=== PATIENT | female | born 1990 | race Caucasian/White ===

== ENCOUNTER 2016-07-20 00:46 | Emergency (ER) | payer MEDICAID ==
[~2016-07-20] VITALS: Ht 160 cm; Wt 65.8 kg
[~2016-07-20 00:46] MED LIST: ALBU17AE23 IH; BREA1EAC5 MC; CLIN-81 PO; DCS100C PO; DOXY100T2 PO; HYDR-3583 PO; HYDR50TA76 PO; IBP600T1 PO; IBP800T PO; MEDR150D8 IM; METO-270 PO; METR500T PO; NAPR500T PO; NITR-65 PO; ONDA8TAB9 PO; PRD20T PO; PREN1TAB39 PO; PREN1TAB71 PO; QUET200T PO; RNT150T PO; SULF1TAB38 PO; TRM50T PO
--- OUTSIDE RECORDS SUMMARY | 2016-07-20 00:52 | XMS REPORT | Continuity of Care Document ---
Author Author [facility] Organization [facility] Address Unknown Phone Unavailable Care Team Providers Care Hydraulic Barker Operator Name Role Phone Lilibeth Ruvalcaba PCP [phone] Source Comments Some departments are not documenting in the electronic medical record. If you do not see the information that you expected, contact Release of Information in the Health Information Management department at [phone] for further assistance in locating additional records.[facility] Active Allergies and Adverse Reactions Not on File Current Medications Not on file Active Problems Not on file Social History Tobacco Use Types Packs/Day Years Used Date Never Assessed Plan of Care Health Maintenance Due Date Last Done Comments Physical (Comprehensive) 1996 Exam Pertussis Vaccine 2000 Tetanus Vaccine 2006 Influenza Vaccine 01/03/2015 Results from Last 3 Months Not on file
[2016-07-20] MEDS ORDERED: CLINDAMYCIN 300 MG/2ML (CLEOCIN) VIAL ONE (01:15)
[2016-07-20] MEDS ORDERED: CLINDAMYCIN 600 MG/4ML (CLEOCIN) VIAL IM ONE (01:15)
[2016-07-20] MEDS ORDERED: methylPREDNISolone 125 MG (Solu-MEDROL) VIAL IM ONE (01:15)
--- NOTE | 2016-07-20 01:21 | ED Upper Extremity ---
General Chief Complaint: Upper Extremity Stated Complaint: RT ARM PAIN,FEELS HOT Nursing Triage Note: PT C/O REDNESS, WARMTH AND SWELLING TO R ELBOW. SHE DENIES ANY INJURY. Nursing Sepsis Screen: No Definite Risk Source: patient History of Present Illness Time seen by provider: 01:04 Initial Comments PT STATES SHE HAS 3 "LITTLE KNOTTED BUMPS--LIKE BUG BITES" ON HER RIGHT ELBOW-- STATES SHE NOTICED THEM LAST NIGHT STATES THEY ONLY ITCH IF SHE TOUCHES THEM, OTHERWISE THEY ARE PAINFUL AND CAUSE HER WHOLE ARM TO HURT STATES SHE FEELS "HEAT" IN THEM STATES SHE DID NOT SEE OR FEEL ANYTHING BITE HER NO PARESTHESIAS OR MOTOR DEFICITS PCP: [facility] Allergies and Home Medications Allergies Coded Allergies: Penicillins (Verified Allergy, Unknown, 06/22/09) codeine (Verified Allergy, Unknown, seizures, 05/18/15) latex (Verified Allergy, Unknown, 09/17/13) Home Medications Ibuprofen 800 Mg Tablet #60 1 TAB PO Q6H PRN PRN PAIN Prescribed by: GUILLERMO VALLES on 09/26/13 1036 Medroxyprogesterone Acetate 150 Mg/1 Ml Syringe 150 MG IM (Reported) Metoprolol Succinate 25 Mg Tab.er.24h #30 1 TAB PO DAILY (Reported) Naproxen 500 Mg Tablet #20 500 MG PO BID PRN PRN PAIN Prescribed by: BETITO TRIPP on 05/18/15 2156 Constitutional: no symptoms reported Respiratory: no symptoms reported Cardiovascular: no symptoms reported : No Control/STD Prophylaxis: Depo Provera (LAST SHOT 07/05/16--NO PERIODS AT ALL SINCE BEING ON DEPO-PROVERA) Musculoskeletal: see HPI Skin: see HPI Psychiatric/Neurological: No Symptoms Reported Past Ntwrqwq-Teambz-Orxdrm Hx Patient Social History Alcohol Use: Denies Use Recreational Drug Use: No Smoking Status: Current Everyday Smoker (1) Type Used: Cigarettes 2nd Hand Smoke Exposure: No Recent Foreign Travel: No Contact w/Someone Who Travel: No Recent Infectious Disease Expo: No Recent Hopitalizations: No Immunizations Up To Date Tetanus Booster (TDap): Less than 5yrs Date of Influenza Vaccine: Mar 05, 2011 Seasonal Allergies Seasonal Allergies: No Surgeries HX Surgeries: Yes Surgeries: Section Respiratory Hx Respiratory Disorders: Yes Respiratory Disorders: Asthma Cardiovascular Hx Cardiac Disorders: No Neurological Hx Neurological Disorders: No Reproductive System Hx Reproductive Disorders: No Genitourinary Hx Genitourinary Disorders: No Gastrointestinal Hx Gastrointestinal Disorders: Yes Gastrointestinal Disorders: Gastroesophageal Reflux, Ulcer Musculoskeletal Hx Musculoskeletal Disorders: No Endocrine Hx Endocrine Disorders: No HEENT HX ENT Disorders: No Cancer Hx Cancer: No Psychosocial Hx Psychiatric Problems: Yes ("13 PERSONALITIES" PER PT. EXTENSIVE PSYCH ISSUES --PT SELF DC'D ALL PSYCH MEDICATIONS 6 MONTHS AGO, PER PT ON 07/20/16) Behavioral Health Disorders: Anxiety, Bipolar, Personality Disorder Integumentary HX Skin/Integumentary Disorder: No Blood Transfusions Hx Blood Disorders: No Adverse Reaction to a Blood Tr: No Family Medical History Family Medial History: Alcoholism 19 FATHER Cancer G8 SISTER Family history: Asthma 19 FATHER 19 MOTHER G8 BROTHER G8 SISTER Seizure disorder G8 BROTHER No Family History of: Abdominal aortic aneurysm Cancer of colon Dementia Family history: Alzheimer's disease Family history: Arthritis Family history: Breast disease Family history: Cardiovascular disease Family history: Diabetes mellitus Family history: Gastrointestinal disease Family history: Hypertension Family history: Thyroid disorder Hereditary disease History of - respiratory disease Kidney disease Myocardial infarction Parkinson's disease Prostate cancer Psychotic disorder Stroke Physical Exam Vital Signs Vital Sign - Last 12Hours 07/20/16 01:01 Temp 98.5 Pulse 89 Resp 16 B/P 135/85 Pulse Ox 96 O2 Delivery Room Air Capillary Refill : Less Than 3 Seconds General Appearance: WD/WN no apparent distress obese other (REEKS OF CIGARETTES) Cardiovascular: regular rate, rhythm Respiratory: normal breath sounds Back: normal inspection Shoulder: normal inspection Elbow/Forearm: Right (RIGHT ELBOW WITH 3 SMALL SUPERFICIAL NODULES-- APPROXIMATELY 5 MM IN DIAMETER. ALL SLIGHTLY ERYTHEMATOUS AND ARE IN A LINEAR DISTRIBUTION AND HAVE THE APPEARANCE OF INSECT BITES. NO SURROUNDING SWELLING/ INDURAITON, WARMTH OR ERYTHEMA. NO DRAINAGE. NO STREAKS. NO AXILLARY ADENOPATHY. FULL ROM. MOTOR/SENSORY/VASCULAR INTACT) Wrist: Yes normal inspection, Yes abrasions Neurologic/Tendon: normal sensation normal motor functions normal tendon functions Neurologic/Psychiatric: certified dialysis technician II-XII nml as tested no motor/sensory deficits alert normal mood/affect oriented x 3 Skin: normal color warm/dry tattoos/piercings (MULTIPLE TATTOOS AND PIERCINGS ) other ( ABOVE) Progress/Results/Core Measures Results/Orders My Orders Orders-JORI JONES DO Methylprednisolone Sod Succ (Solu-Medrol (07/20/16 01:15) Clindamycin Injection (Cleocin Injection (07/20/16 01:15) Vital Signs/I&O Vital Sign - Last 12Hours 07/20/16 01:01 Temp 98.5 Pulse 89 Resp 16 B/P 135/85 Pulse Ox 96 O2 Delivery Room Air Blood Pressure Mean: 102 Departure Impression Impression: Primary Impression: NON-SPECIFIC SKIN ERUPTION RIGHT ELBOW Disposition: HOME, SELF-CARE Condition: Stable Departure-Patient Inst. Referrals: [facility] (PCP/Family) Primary Care Physician Patient Instructions: Skin Rash (DC) Add. Discharge Instructions: TYLENOL AND MOTRIN NEEDED FOR PAIN HYDROCORTISONE CREAM TO AREA 3-4 TIMES A DAY ICE TO AREA AT 20 MINUTE INTERVALS FOLLOW UP WITH YOUR DR ON FRIDAY IF NO BETTER All discharge instructions reviewed with patient and/or family. Voiced understanding. Scripts Prednisone 10 Mg Tab40 Mg PO DAILY #12 TAB Prov:JORI JONES DO 07/20/16 Sulfamethoxazole/Trimethoprim (Bactrim Ds Tablet)1 Each Tablet1 Each PO BID #20 TAB Prov:JORI JONES DO 07/20/16 Images Extremities-Upper 1 - AREA OF 3 SMALL SUPERFICAL "BUMPS" JORI JONES DO Jul 20, 2016 01:21
[2016-07-20] MEDS ORDERED: PRD10T PO (01:30)
[2016-07-20] MEDS ORDERED: SULF1TAB35 PO (01:30)
[2016-07-20 01:35] VITALS: BP 135/85
== END 2016-07-20 01:35 | disposition home or self-care (01) ==
LOC: EDUNIT# 00:46 → ER 00:50
DX: R21 Rash and other nonspecific skin eruption (principal); F17.210 Nicotine dependence, cigarettes, uncomplicated
CPT/HCPCS: 96372; 99282

== ENCOUNTER 2016-07-28 19:12 | Emergency (ER) | payer MEDICAID ==
[~2016-07-28] VITALS: Ht 160 cm; Wt 74.8 kg
[~2016-07-28 19:12] MED LIST changes: +PRD10T PO; +SULF1TAB35 PO
[2016-07-28] MEDS ORDERED: KETOROLAC 60 MG/2 ML VIAL IM ONE (19:15)
--- NOTE | 2016-07-28 19:18 | ED Lower Extremity ---
General Chief Complaint: Lower Extremity Stated Complaint: KNEE PAIN Source: patient, EMS Exam Limitations: no limitations History of Present Illness Time seen by provider: 19:16 Initial Comments To ER with reports of a left knee injury. This began just prior to arrival when she was playing in the grass with some children playing ball. She states the grass was wet and she twisted her knee which then caused her to fall. She states that she hurt her knee pop "8 different times" on the way to the ground. Since the event she's been unable to bear weight on the leg. She arrives per EMS and reports no sensation in the left foot however she is able to dorsiflex and plantar flex her foot and toes and has a strong 2+ dorsalis pedis pulses equal to the right side. Onset: just prior to arrival Severity: moderate Pain/Injury Location: left knee Method of Injury: fell, twisted Modifying Factors: Worse With Movement Allergies and Home Medications Allergies Coded Allergies: Penicillins (Verified Allergy, Unknown, 06/22/09) codeine (Verified Allergy, Unknown, seizures, 05/18/15) latex (Verified Allergy, Unknown, 09/17/13) Home Medications Ibuprofen 800 Mg Tablet, 1 TAB PO Q6H PRN for PAIN, #60 Prescribed by: GUILLERMO VALLES on 09/26/13 1036 Medroxyprogesterone Acetate 150 Mg/1 Ml Syringe, 150 MG IM, (Reported) Metoprolol Succinate 25 Mg Tab.er.24h, 1 TAB PO DAILY, #30 (Reported) Naproxen 500 Mg Tablet, 500 MG PO BID PRN for PAIN, #20 Ref 0 Prescribed by: BETITO TRIPP on 05/18/15 2156 Prednisone 10 Mg Tab, 40 MG PO DAILY, #12 Prescribed by: JORI JONES on 07/20/16 0130 Sulfamethoxazole/Trimethoprim 1 Each Tablet, 1 EACH PO BID, #20 Prescribed by: JORI JONES on 07/20/16 013 Constitutional: see HPI EENTM: see HPI Respiratory: no symptoms reported Cardiovascular: no symptoms reported Genitourinary: no symptoms reported Musculoskeletal: see HPI, joint pain Skin: no symptoms reported Psychiatric/Neurological: No Symptoms Reported Past Ccollpe-Kviqqq-Kqkfbf Hx Patient Social History Type Used: Cigarettes 2nd Hand Smoke Exposure: No Recent Hopitalizations: No Immunizations Up To Date Tetanus Booster (TDap): Less than 5yrs Date of Influenza Vaccine: Mar 05, 2011 Seasonal Allergies Seasonal Allergies: No Surgeries HX Surgeries: Yes Surgeries: Section Respiratory Hx Respiratory Disorders: Yes Respiratory Disorders: Asthma Cardiovascular Hx Cardiac Disorders: No Neurological Hx Neurological Disorders: No Reproductive System Hx Reproductive Disorders: No Genitourinary Hx Genitourinary Disorders: No Gastrointestinal Hx Gastrointestinal Disorders: Yes Gastrointestinal Disorders: Gastroesophageal Reflux, Ulcer Musculoskeletal Hx Musculoskeletal Disorders: No Endocrine Hx Endocrine Disorders: No HEENT HX ENT Disorders: No Cancer Hx Cancer: No Psychosocial Hx Psychiatric Problems: Yes Behavioral Health Disorders: Anxiety, Bipolar, Personality Disorder Integumentary HX Skin/Integumentary Disorder: No Blood Transfusions Hx Blood Disorders: No Adverse Reaction to a Blood Tr: No Family Medical History Family Medial History: Alcoholism 19 FATHER Cancer G8 SISTER Family history: Asthma 19 FATHER 19 MOTHER G8 BROTHER G8 SISTER Seizure disorder G8 BROTHER No Family History of: Abdominal aortic aneurysm Cancer of colon Dementia Family history: Alzheimer's disease Family history: Arthritis Family history: Breast disease Family history: Cardiovascular disease Family history: Diabetes mellitus Family history: Gastrointestinal disease Family history: Hypertension Family history: Thyroid disorder Hereditary disease History of - respiratory disease Kidney disease Myocardial infarction Parkinson's disease Prostate cancer Psychotic disorder Stroke Physical Exam Vital Signs Vital Sign - Last 12Hours 07/28/16 19:13 Temp 98.2 Pulse 100 Resp 18 B/P (MAP) 134/102 Pulse Ox 97 O2 Delivery Room Air Capillary Refill : General Appearance: WD/WN, no apparent distress HEENT: PERRL/EOMI, normal ENT inspection Neck: non-tender, full range of motion Respiratory: no respiratory distress, no accessory muscle use Hips: bilateral hip non-tender, bilateral hip normal inspection, bilateral hip normal range of motion Legs: bilateral leg non-tender, bilateral leg normal inspection, bilateral leg normal range of motion Knees: left knee pain, left knee soft tissue tenderness, left knee other ( there is no obvious deformity to the knee. There is no obvious effusion. As mentioned she reports hypoesthesia of the left foot but maintains motor function with the ability to plantar and dorsiflex the toes and the foot. Capillary refill of the toes is less than 2 seconds in the dorsalis pedis pulse of the left foot is 2+, equal to the right.) Neurologic/Psychiatric: alert, normal mood/affect, oriented x 3 Comments When touched with a broken off wooden tongue blade, she denies feeling anything from the knee inferiorly circumferentially around the leg. However to the plantar surface of the foot she maintains both sharp and dull sensation. As mentioned she is able to dorsiflex the toes and the foot at the ankle. Progress/Results/Core Measures Results/Orders My Orders Orders - ALEXI SIMMS APRN Knee, Left, 3 Views (07/28/16 19:15) Ketorolac Injection (Toradol Injection) (07/28/16 19:15) Medications Given in ED Current Medications Medications Dose Ordered Sig/Kevin Route Start Time Stop Time Status Last Admin Dose Admin Ketorolac Tromethamine 60 mg ONCE ONCE IM 07/28/16 19:15 07/28/16 19:16 DC 07/28/16 19:27 60 MG Vital Signs/I&O Vital Sign - Last 12Hours 07/28/16 19:13 Temp 98.2 Pulse 100 Resp 18 B/P (MAP) 134/102 Pulse Ox 97 O2 Delivery Room Air Diagnostic Imaging Diagonstic Imaging: Xray Comments NAME: MYLES SORIA [facility] REC#: [id number] PT STATUS: REG ER : 1990 PHYSICIAN: ALEXI SIMMS APRN ADMIT DATE: 07/28/16/ER Draft Date of Exam:07/28/16 KNEE, LEFT, 3 VIEWS INDICATION: Knee pain after fall. TECHNIQUE: Three views of the left knee. COMPARISON: None available. FINDINGS: There is no acute fracture or traumatic malalignment. No significant knee joint effusion. Normal osseous mineralization. Joint spaces are well maintained. IMPRESSION: No acute fracture or traumatic malalignment involving the left knee. Dictated on workstation # [id number] Dict: 07/28/161929 Trans: 07/28/161931 [facility] [id number] Interpreted by: LYNN MOCTEZUMA MD Electronically signed by: Departure Impression Impression: Primary Impression: Sprain of knee Disposition: 01 HOME, SELF-CARE Condition: Stable Departure-Patient Inst. Decision time for Depature: 19:37 Referrals: [facility] (PCP) Primary Care Physician SOFIA BAUTISTA MD,LAN GIBSON,LEA BARFIELD,ART KEMP,LON SWAIN,ZOFIA Selby MD Patient Instructions: Knee Sprain (DC) Add. Discharge Instructions: 1. Call one of the orthopedic surgeons tomorrow to make an appointment to be seen in follow-up. Alternatively you may see your family doctor tomorrow and discuss with them whether or not an MRI of the knee would be of value. It away , you should be reevaluated later this week by someone to ensure that you are improving 2. Tylenol and Motrin for pain 3. Wear the knee immobilizer anytime that you are up and about until you are released from wearing this by your primary care provider or orthopedics 4. Use crutches as needed when walking for any pain All discharge instructions reviewed with patient and/or family. Voiced understanding. ALEXI SIMMS APRN Jul 28, 2016 19:18
--- NOTE | 2016-07-28 19:33 | Diagnostic Imaging Report ---
INDICATION: Knee pain after fall. TECHNIQUE: Three views of the left knee. COMPARISON: None available. FINDINGS: There is no acute fracture or traumatic malalignment. No significant knee joint effusion. Normal osseous mineralization. Joint spaces are well maintained. IMPRESSION: No acute fracture or traumatic malalignment involving the left knee. Dictated by: Dictated on workstation # [id number]
[2016-07-28] MEDS ORDERED: HYDROcodone/APAP 5 MG/325 MG (LORTAB) TAB PO ONE (19:45)
[2016-07-28 19:51] VITALS: BP 121/74
--- OUTSIDE RECORDS SUMMARY | 2016-08-13 13:44 | XMS REPORT | Continuity of Care Document ---
Author Author [facility] Organization [facility] Address Unknown Phone Unavailable Care Team Providers Care Dietary Manager Name Role Phone Lilibeth Ruvalcaba PCP [phone] Source Comments Some departments are not documenting in the electronic medical record. If you do not see the information that you expected, contact Release of Information in the Health Information Management department at [phone] for further assistance in locating additional records.[facility] Active Allergies and Adverse Reactions Not on File Current Medications Not on file Active Problems Not on file Social History Tobacco Use Types Packs/Day Years Used Date Never Assessed Plan of Care Health Maintenance Due Date Last Done Comments Physical (Comprehensive) 1996 Exam Pertussis Vaccine 2000 Tetanus Vaccine 2006 Influenza Vaccine 01/03/2017 Results from Last 3 Months Not on file
--- OUTSIDE RECORDS SUMMARY | 2016-08-13 13:44 | XMS REPORT ---
Author Author EBONI SANDY [facility] eClinical[employer] Address Unknown Phone Unavailable Care Team Providers Care Railroad Baggage Porter Name Role Phone EBONI SANDY Unavailable Allergies No Known Allergies Problems Problem Type Condition ICD-9 Code Onset Dates Condition Status Problem Screening for diabetes mellitus V77.1 Active Problem examination or test, positive result V72.42 Active Problem DTAP TEST V06.1 Active Problem Disruption of wound, 674.14 Active Problem Pain in thoracic spine 724.1 Active Problem Cough 786.2 Active Problem Unspecified contraceptive management V25.9 Active Assessment Dental examination V72.2 Active Problem Encounter for change or removal of surgical wound dressing V58.31 Active Problem Need for prophylactic vaccination and inoculation, Influenza V04.81 Active Problem Acute upper respiratory infections of unspecified site 465.9 Active Problem Chest pain, other 786.59 Active Problem Screening examination for venereal disease V74.5 Active Problem Tobacco use disorder complicating , childbirth, or the puerperium, unspecified as to episode of care or not applicable 649.00 Active Problem Unspecified backache 724.5 Active Problem Unspecified infective otitis externa 380.10 Active Problem Previous delivery, unspecified as to episode of care or not applicable 654.20 Active Problem Supervision of other high-risk V23.89 Active Problem Screening for malignant neoplasm of the cervix V76.2 Active Problem Acute serous otitis media 381.01 Active Problem Abdominal pain, unspecified site 789.00 Active Problem Acute bronchitis 466.0 Active Problem Screening for iron deficiency anemia V78.0 Active Medications No Known Medications Procedures Procedure Coding System Code Date INTRAORL-PERIAPICAL EA ADD FILM CPT-4 D0230 Dec 12, 2014 INTRAORL-PERIAPICAL EA ADD FILM CPT-4 D0230 Dec 12, 2014 INTRAORL-PERIAPICAL 1 FILM 60965 CPT-4 D0220 Dec 12, 2014 INTRAORL-PERIAPICAL EA ADD FILM CPT-4 D0230 Dec 12, 2014 INTRAORL-PERIAPICAL EA ADD FILM CPT-4 D0230 Dec 12, 2014 Periodontal scaling & root CPT-4 D4341 Dec 12, 2014 BITEWINGS - FOUR FILMS CPT-4 D0274 Dec 12, 2014 Results No Known Results Summary Purpose eClinicalWorks Submission
--- OUTSIDE RECORDS SUMMARY | 2016-08-13 13:45 | XMS REPORT ---
Author Author CIERRA MOR[facility] [employer] Address Unknown Phone Unavailable Care Team Providers Care Coke Inspector Name Role Phone CIERRA MORENO Unavailable Allergies, Adverse Reactions, Alerts Substance Reaction Event Type Penicillin V Potassium hives Drug Allergy Problems Problem Type Condition Code Onset Dates Condition Status Problem Screening for iron deficiency anemia V78.0 Active Assessment Encounter for counseling regarding contraception Z30.9 Active Problem Screening for diabetes mellitus V77.1 Active Assessment Encounter for Depo-Provera contraception Z30.42 Active Problem DTAP TEST V06.1 Active Problem Acute upper respiratory infections of unspecified site 465.9 Active Problem examination or test, positive result V72.42 Active Problem Encounter for change or removal of surgical wound dressing V58.31 Active Problem Disruption of wound, 674.14 Active Problem Unspecified infective otitis externa 380.10 Active Problem Pain in thoracic spine 724.1 Active Problem Reactive airway disease 493.90 Active Problem Unspecified contraceptive management V25.9 Active Problem Screening examination for venereal disease V74.5 Active Problem Need for prophylactic vaccination and inoculation, Influenza V04.81 Active Problem Cough 786.2 Active Problem Chest pain, other 786.59 Active Problem Unspecified backache 724.5 Active Problem Acute serous otitis media 381.01 Active Problem Previous delivery, unspecified as to episode of care or not applicable 654.20 Active Problem Tobacco use disorder complicating , childbirth, or the puerperium, unspecified as to episode of care or not applicable 649.00 Active Problem Screening for malignant neoplasm of the cervix V76.2 Active Problem Abdominal pain, unspecified site 789.00 Active Problem Acute bronchitis 466.0 Active Problem Supervision of other high-risk V23.89 Active Medications Medication Code System Code Instructions Start Date End Date Status Dosage Brintellix [facility] [address]-20 20 MG Orally Once a day Apr 25, 2014 take 2 tablets Lamictal [facility] [address]-40 200 MG Orally Once a day Apr 25, 2014 2 tablets Depo-Provera [facility] [address]-87 150 MG/ML Intramuscular every 3 months Feb 27, 2016 as directed Alprazolam [facility] [address]-68 1 MG Orally Twice a day Apr 25, 2014 take 1 tablet Procedures Procedure Coding System Code Date Office Visit, Est Pt., Level 3 CPT-4 28246 Feb 27, 2016 DEPO PROVERA (150 MG/ML) CPT-4 J1050 Feb 27, 2016 URINE TEST CPT-4 74855 Feb 27, 2016 THER/PROPH/DIAG INJ, SC/IM CPT-4 24228 Feb 27, 2016 Vital Signs Date/Time: Feb 27, 2016 Cardiac Monitoring Heart Rate 91 bpm Weight 182.2 lbs Height 59.75 in BMI 35.88 Index Blood Pressure Diastolic 70 mmHg Blood Pressure Systolic 118 mmHg Results Name Result Date Reference Range Unit Abnormality Flag TEST, URINE (IN HOUSE) ----RESULTS Neg [id number] ----Lot # [id number] ----Control + [id number] ----Exp date 20160227 Summary Purpose eClinicalWorks Submission
--- OUTSIDE RECORDS SUMMARY | 2016-08-13 13:45 | XMS REPORT ---
Author Author SHEREE HERRERA [facility] eClinicalWorks Address Unknown Phone Unavailable Care Team Providers Care Medical Delivery Driver Name Role Phone SHEREE HERRERA CP Unavailable Allergies, Adverse Reactions, Alerts Substance Reaction Event Type Penicillin V Potassium hives Drug Allergy Problems Problem Type Condition Code Onset Dates Condition Status Assessment High risk medication use Z79.899 Active Assessment Low back pain without sciatica, unspecified back pain laterality M54.5 Active Assessment Contraceptive management Z30.9 Active Problem Screening for iron deficiency anemia V78.0 Active Assessment Tachycardia R00.0 Active Problem Screening for diabetes mellitus V77.1 Active Assessment Rhinosinusitis J32.9 Active Problem DTAP TEST V06.1 Active Problem [...] Instructions Start Date End Date Status Dosage Metoprolol Succinate ER [facility] [address]-32 25 MG Orally Once a day Apr 20, 2015 1 tablet Doxycycline Hyclate [facility] [address]-23 100 MG Orally every 12 hrs Apr 20, 2015 Apr 25, 2015 1 capsule Alprazolam [facility] [address]-78 1 MG Orally Twice a day Apr 25, 2014 take 1 tablet Doxepin HCl [facility] [address]-21 10 MG Orally Once a day 2 capsules at bedtime ProAir HFA [facility] [address]-38 108 (90 Base) MCG/ACT Inhalation every 4 hrs Dec 15, 2014 2 puffs as needed Omeprazole [facility] [address]-41 20 mg Mar 09, 2014 take 1 capsule ( 20 mg) by oral route once daily before a meal Brintellix [facility] [address]-80 20 MG Orally Once a day Apr 25, 2014 take 2 tablets Seroquel [facility] [address]-83 400 MG Orally Once a day 2 tablets at bedtime Lamictal [facility] [address]-83 200 MG Orally Once a day Apr 25, 2014 2 tablets Qvar [facility] [address]-93 40 MCG/ACT Inhalation Twice a day Dec 15, 2014 1 puff Fanapt [facility] [address]-93 10 MG Orally Once a day Apr 25, 2014 take 2 tablets Procedures Procedure Coding System Code Date THER/PROPH/DIAG INJ, SC/IM CPT-4 75995 Apr 20, 2015 Office Visit, Est Pt., Level 3 CPT-4 21826 Apr 20, 2015 DEPO PROVERA (150 MG/ML) CPT-4 J1050 Apr 20, 2015 DRUG SCREEN NON TLC DEVICES CPT-4 76907 Apr 20, 2015 URINE TEST CPT-4 31768 Apr 20, 2015 Vital Signs Date/Time: Apr 20, 2015 Temperature 99.6 F Weight 190.4 lbs Height 59.75 in BMI 37.49 Index Blood Pressure Diastolic 78 mmHg Blood Pressure Systolic 126 mmHg Cardiac Monitoring Heart Rate 136 bpm Results Name Result Date Reference Range Unit Abnormality Flag TEST, URINE (IN HOUSE) ----RESULTS Neg [id number] ----Control + [id number] URINE DRUG SCREEN (IN HOUSE) ----THC neg [id number] ----MTD neg [id number] ----BENZO neg [id number] ----OPIATE neg [id number] ----BAR neg [id number] ----OXY neg [id number] ----PCP neg [id number] ----MDMA neg [id number] ----COCAINE neg [id number] ----AMPH neg [id number] ----Exp date [id number] ----MAMP neg [id number] ----TCA neg [id number] ----Control + [id number] ----Lot # [id number] Summary Purpose eClinicalWorks Submission
--- OUTSIDE RECORDS SUMMARY | 2016-08-13 13:45 | XMS REPORT ---
Author Author SHEREE HERRERA [facility] eClinicalWorks Address Unknown Phone Unavailable Care Team Providers Care Environmental Protection Forester Name Role Phone SHEREE HERRERA CP Unavailable Allergies No Known Allergies Problems Problem Type Condition Code Onset Dates Condition Status Problem DTAP TEST V06.1 Active Problem Acute upper respiratory infections of unspecified site 465.9 Active Problem examination or test, positive result V72.42 Active Problem Encounter for change or removal of surgical wound dressing V58.31 Active Problem Unspecified infective otitis externa 380.10 Active Problem Disruption of wound, 674.14 Active Problem Pain in thoracic spine 724.1 Active Problem Unspecified contraceptive management V25.9 Active Problem Reactive airway disease 493.90 Active Problem Screening examination for venereal disease [...] Screening for iron deficiency anemia V78.0 Active Problem Supervision of other high-risk V23.89 Active Problem Screening for diabetes mellitus V77.1 Active Medications No Known Medications Results No Known Results Summary Purpose eClinicalWorks Submission
--- OUTSIDE RECORDS SUMMARY | 2016-08-13 13:45 | XMS REPORT ---
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
--- OUTSIDE RECORDS SUMMARY | 2016-08-13 13:47 | XMS REPORT ---
Author Author SHEREE HERRERA [facility] eClinicalWorks Address Unknown Phone Unavailable Care Team Providers Care Supervisor Rough End Name Role Phone SHEREE HERRERA CP Unavailable [...] Start Date End Date Status Dosage Spinosad [facility] [address]-71 0.9 % Externally one time May 03, 2015 as directed Results No Known Results Summary Purpose eClinicalWorks Submission
--- OUTSIDE RECORDS SUMMARY | 2016-08-13 13:47 | XMS REPORT | Continuity of Care Document ---
Author Author [facility] Organization [facility] Address Unknown Phone Unavailable Care Team Providers Care Manager Endoscopy Name Role Phone NO, LOCAL PHYSICIAN PP Unavailable Insurance Providers Payer Name Policy Number Subscriber Name Relationship [facility] [id number] Jamel Soria 01 Self / Same As Patient Advance Directives Directive Response Recorded Date Advance Directives N 10/12/12 1:57pm Health Care Power of Passenger Relations Representative N 09/20/12 11:25pm Organ Donor N 09/20/12 11:25pm Problems No Known Problems or Medical conditions. Family History History Response Recorded Date/Time Hx Family Cancer N 08/24/11 10:16am Social History History Response Recorded Date/Time Alcohol Use Denies Use 10/12/12 1:57pm Recreational Drug Use N 10/12/12 1:57pm Recent Foreign Travel N 10/12/12 1:57pm Recent Infectious Disease Exposure N 02/14 1:57pm Allergies, Adverse Reactions, Alerts Allergen Type Severity Reaction Last Updated Penicillins Allergy Unknown 06/22/09 latex Allergy 10/12/12 Medications Medication Dose Units Route Sig Qty Days Tramadol HCl (Ultram) 50 Mg PO Q4H 14 Trimethoprim/Sulfamethoxazole (Bactrim Ds) 1 Ea PO BID 7 Nitrofurantoin Macrocrystals (Macrobid) 1 Each PO BID 20 Ibuprofen (Motrin) 600 Mg PO Q6H PRN Acetaminophen/Hydrocodone Bitart (Lortab 5 Mg) 1 - 2 Ea PO Q 4 - 6 HR PRN Vits W-Ca,Fe,Fa(<1MG) () 1 Each PO DAILY Immunizations Name Given Type Date of Influenza Vaccine 03/05/11 H Response Recorded Date/Time Status not known Unknown Results No Known Relevant Diagnostic Tests, Laboratory Data and/or Discharge Summary. Procedures Procedure Code Date LOW CERVICAL 74.1 02/09/07 LOW CERVICAL 74.1 06/22/09 LOW CERVICAL 74.1 08/24/11 Encounters Encounter Location Date/Time Departed Emergency Room [facility] 02/14 1:22pm Discharged Inpatient [facility] 8:03am
--- OUTSIDE RECORDS SUMMARY | 2016-08-13 13:47 | XMS REPORT | Continuity of Care Document ---
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 DO, BEULAH K V72.42 EXAMINATION OR TEST POSITIVE RESULT 02/08/2013 [facility] SHEREE E 465.9 ACUTE UPPER RESPIRATORY INFECTIONS OF UNSPECIFIED SITE 02/08/2013 [employer] SHEREE E V72.42 EXAMINATION OR TEST POSITIVE RESULT 02/08/2013 [employer] SHEREE E 465.9 ACUTE UPPER RESPIRATORY INFECTIONS OF UNSPECIFIED SITE 02/08/2013 [employer], SHEREE E V72.42 EXAMINATION OR TEST POSITIVE RESULT 02/08/2013 DOWELL DO, BEULAH K 465.9 ACUTE UPPER RESPIRATORY INFECTIONS OF UNSPECIFIED SITE 02/08/2013 DOWELL DO, BEULAH K V72.42 EXAMINATION OR TEST POSITIVE RESULT 02/08/2013 SHEREE HERRERA APRN E 465.9 ACUTE UPPER RESPIRATORY INFECTIONS OF UNSPECIFIED SITE 02/08/2013 SHEREE HERRERA APRN V72.42 EXAMINATION OR TEST POSITIVE RESULT 02/08/2013 DOWELL DO, BEULAH K 465.9 ACUTE UPPER RESPIRATORY INFECTIONS OF UNSPECIFIED SITE 02/08/2013 DOWELL DO, BEULAH K V72.42 EXAMINATION OR TEST POSITIVE RESULT 02/17/2013 DOWELL DO, BEULAH K 789.00 ABDOMINAL PAIN UNSPECIFIED SITE 02/17/2013 DOWELL DO, BEULAH K 789.00 ABDOMINAL PAIN UNSPECIFIED SITE 02/17/2013 DOWELL DO, BEULAH K 789.00 ABDOMINAL PAIN UNSPECIFIED SITE 02/17/2013 DOWELL DO, BEULAH K 789.00 ABDOMINAL PAIN UNSPECIFIED SITE 02/17/2013 DOWELL DO, BEULAH K 789.00 ABDOMINAL PAIN UNSPECIFIED SITE 02/17/2013 DOWELL DO, BEULAH K 789.00 ABDOMINAL PAIN UNSPECIFIED SITE 02/17/2013 DOWELL DO, BEULAH K 789.00 ABDOMINAL PAIN UNSPECIFIED SITE 02/17/2013 [facility] [employer] SHEREE E 789.00 ABDOMINAL PAIN UNSPECIFIED SITE 02/17/2013 DOWELL DO, BEULAH K 789.00 ABDOMINAL PAIN UNSPECIFIED SITE 02/17/2013 HYACINTHLJUDIT GAMEZ SHEREE E 789.00 ABDOMINAL PAIN UNSPECIFIED SITE 02/17/2013 DOWELL DO, BEULAH K 789.00 ABDOMINAL PAIN UNSPECIFIED SITE 02/17/2013 DOWELL DO, BEULAH K 789.00 ABDOMINAL PAIN UNSPECIFIED SITE 02/17/2013 MARIBEL CALIX DDS 789.00 ABDOMINAL PAIN UNSPECIFIED SITE 02/17/2013 DOWELL DO, BEULAH K 789.00 ABDOMINAL PAIN UNSPECIFIED SITE 02/17/2013 DOWELL DO, BEULAH K 789.00 ABDOMINAL PAIN UNSPECIFIED SITE 02/17/2013 DOWELL DO, BEULAH K 789.00 ABDOMINAL PAIN UNSPECIFIED SITE 02/17/2013 FIFI WILDESJOSE FRANCISCO 789.00 ABDOMINAL PAIN UNSPECIFIED SITE 02/17/2013 [employer], SHEREE E 789.00 ABDOMINAL PAIN UNSPECIFIED SITE 02/17/2013 DOWELL DO, BEULAH K 789.00 ABDOMINAL PAIN UNSPECIFIED SITE 02/17/2013 [facility] [employer], SHEREE E 789.00 ABDOMINAL PAIN UNSPECIFIED SITE 02/17/2013 DOWELL DO, BEULAH K 789.00 ABDOMINAL PAIN UNSPECIFIED SITE 02/17/2013 HYACINTHISIS SPAIN APRNE E 789.00 ABDOMINAL PAIN UNSPECIFIED SITE 02/17/2013 [facility] [employer] [employer], SHEREE E 789.00 ABDOMINAL PAIN UNSPECIFIED SITE 02/17/2013 DOWELL DO, BEULAH K 789.00 ABDOMINAL PAIN UNSPECIFIED SITE 02/17/2013 [facility] SYLVIA GAMEZSIE E 789.00 ABDOMINAL PAIN UNSPECIFIED SITE 02/17/2013 DOWELL DO, BEULAH K 789.00 ABDOMINAL PAIN UNSPECIFIED SITE 04/07/2013 DOWELL DO, BEULAH K V04.81 FLU SHOT 04/07/2013 DOWELL DO, BEULAH K V74.5 STD SCREEN 04/07/2013 DOWELL DO, BEULAH K V04.81 FLU SHOT 04/07/2013 DOWELL DO, BEULAH K V74.5 STD SCREEN 04/07/2013 DOWELL DO, BEULAH K V04.81 FLU SHOT 04/07/2013 DOWELL DO, BEULAH K V74.5 STD SCREEN 04/07/2013 DOWELL DO, BEULAH K V04.81 FLU SHOT 04/07/2013 DOWELL DO, BEULAH K V74.5 STD SCREEN 04/07/2013 DOWELL DO, BEULAH K V04.81 FLU SHOT 04/07/2013 DOWELL DO, BEULAH K V74.5 STD SCREEN 04/07/2013 DOWELL DO, BEULAH K V04.81 FLU SHOT 04/07/2013 DOWELL DO, BEULAH K V74.5 STD SCREEN 04/07/2013 [facility] SHEREE E V04.81 FLU SHOT 04/07/2013 [facility] [employer], SHEREE E V74.5 STD SCREEN 04/07/2013 DOWELL DO, BEULAH K V04.81 FLU SHOT 04/07/2013 DOWELL DO, BEULAH K V74.5 STD SCREEN 04/07/2013 [facility] VERA SHEREE E V04.81 FLU SHOT 04/07/2013 [facility] SHEREE E V74.5 STD SCREEN 04/07/2013 DOWELL DO, BEULAH K V04.81 FLU SHOT 04/07/2013 DOWELL DO, BEULAH K V74.5 STD SCREEN 04/07/2013 DOWELL DO, BEULAH K V04.81 FLU SHOT 04/07/2013 DOWELL DO, BEULAH K V74.5 STD SCREEN 04/07/2013 WHITE DDS, MARIBEL D V04.81 FLU SHOT 04/07/2013 WHITE DDS, AMRIBEL D V74.5 STD SCREEN 04/07/2013 DOWELL DO, BEULAH K V04.81 FLU SHOT 04/07/2013 DOWELL DO, BEULAH K V74.5 STD SCREEN 04/07/2013 DOWELL DO, BEULAH K V04.81 FLU SHOT 04/07/2013 DOWELL DO, BEULAH K V74.5 STD SCREEN 04/07/2013 DOWELL DO, BEULAH K V04.81 FLU SHOT 04/07/2013 DOWELL DO, BEULAH K V74.5 STD SCREEN 04/07/2013 WHITE DDS, JOSE FRANCISCO J V04.81 FLU SHOT 04/07/2013 WHITE DDS, JOSE FRANCISCO J V74.5 STD SCREEN 04/07/2013 [employer], SHEREE E V04.81 FLU SHOT 04/07/2013 [employer], SHEREE E V74.5 STD SCREEN 04/07/2013 DOWELL DO, BEULAH K V04.81 FLU SHOT 04/07/2013 DOWELL DO, BEULAH K V74.5 STD SCREEN 04/07/2013 [employer], SHEREE E V04.81 FLU SHOT 04/07/2013 [employer], SHEREE E V74.5 STD SCREEN 04/07/2013 DOWELL DO, BEULAH K V04.81 FLU SHOT 04/07/2013 DOWELL DO, BEULAH K V74.5 STD SCREEN 04/07/2013 [employer], SHEREE E V04.81 FLU SHOT 04/07/2013 [employer], SHEREE E V74.5 STD SCREEN 04/07/2013 [employer], SHEREE E V04.81 FLU SHOT 04/07/2013 [employer], SHEREE E V74.5 STD SCREEN 04/07/2013 DOWELL DO, BEULAH K V04.81 FLU SHOT 04/07/2013 DOWELL DO, BEULAH K V74.5 STD SCREEN 04/07/2013 [employer], SHEREE E V04.81 FLU SHOT 04/07/2013 SHEREE HERRERA APRN V74.5 STD SCREEN 04/07/2013 DOWELL DO, BEULAH K V04.81 FLU SHOT 04/07/2013 DOWELL DO, BEULAH K V74.5 STD SCREEN 06/16/2013 DOWELL DO, BEULAH K V06.1 TDAP DX 06/16/2013 DOWELL DO, BEULAH K V77.1 DIABETES SCREENING 06/16/2013 DOWELL DO, BEULAH K V78.0 ANEMIA SCREENING 06/16/2013 DOWELL DO, BEULAH K V06.1 TDAP DX 06/16/2013 DOWELL DO, BEULAH K V77.1 DIABETES SCREENING 06/16/2013 DOWELL DO, BEULAH K V78.0 ANEMIA SCREENING 06/16/2013 DOWELL DO, BEULAH K V06.1 TDAP DX 06/16/2013 DOWELL DO, BEULAH K V77.1 DIABETES SCREENING 06/16/2013 DOWELL DO, BEULAH K V78.0 ANEMIA SCREENING 06/16/2013 SHEREE HERRERA APRN E V06.1 TDAP DX 06/16/2013 SHEREE HERRERA APRN E V77.1 DIABETES SCREENING 06/16/2013 [facility] E V78.0 ANEMIA SCREENING 06/16/2013 DOWELL DO, BEULAH K V06.1 TDAP DX 06/16/2013 DOWELL DO, BEULAH K V77.1 DIABETES SCREENING 06/16/2013 DOWELL DO, BEULAH K V78.0 ANEMIA SCREENING 06/16/2013 SHEREE HERRERA APRN E V06.1 TDAP DX 06/16/2013 HYACINTHSHEREE SPAIN APRN E V77.1 DIABETES SCREENING 06/16/2013 [facility] E V78.0 ANEMIA SCREENING 06/16/2013 DOWELL DO, BEULAH K V06.1 TDAP DX 06/16/2013 DOWELL DO, BEULAH K V77.1 DIABETES SCREENING 06/16/2013 DOWELL DO, BEULAH K V78.0 ANEMIA SCREENING 06/16/2013 DOWELL DO, BEULAH K V06.1 TDAP DX 06/16/2013 DOWELL DO, BEULAH K V77.1 DIABETES SCREENING 06/16/2013 DOWELL DO, BEULAH K V78.0 ANEMIA SCREENING 06/16/2013 MARIBEL CALIX DDS V06.1 TDAP DX 06/16/2013 WHITE DDS, MARIBEL D V77.1 DIABETES SCREENING 06/16/2013 WHITE DDS, MARIBEL D V78.0 ANEMIA SCREENING 06/16/2013 DOWELL DO, BEULAH K V06.1 TDAP DX 06/16/2013 DOWELL DO, BEULAH K V77.1 DIABETES SCREENING 06/16/2013 DOWELL DO, BEULAH K V78.0 ANEMIA SCREENING 06/16/2013 DOWELL DO, BEULAH K V06.1 TDAP DX 06/16/2013 DOWELL DO, BEULAH K V77.1 DIABETES SCREENING 06/16/2013 DOWELL DO, BEULAH K V78.0 ANEMIA SCREENING 06/16/2013 DOWELL DO, BEULAH K V06.1 TDAP DX 06/16/2013 DOWELL DO, BEULAH K V77.1 DIABETES SCREENING 06/16/2013 DOWELL DO, BEULAH K V78.0 ANEMIA SCREENING 06/16/2013 WHITE DDS, JOSE FRANCISCO J V06.1 TDAP DX 06/16/2013 WHITE DDS, JOSE FRANCISCO J V77.1 DIABETES SCREENING 06/16/2013 WHITE DDS, JOSE FRANCISCO J V78.0 ANEMIA SCREENING 06/16/2013 ISIS HERRERA APRNE E V06.1 TDAP DX 06/16/2013 SHEREE HERRERA APRN E V77.1 DIABETES SCREENING 06/16/2013 ISIS HERRERA APRNE E V78.0 ANEMIA SCREENING 06/16/2013 DOWELL DO, BEULAH K V06.1 TDAP DX 06/16/2013 DOWELL DO, BEULAH K V77.1 DIABETES SCREENING 06/16/2013 DOWELL DO, BEULAH K V78.0 ANEMIA SCREENING 06/16/2013 SHARON GAMEZ SHEREE E V06.1 TDAP DX 06/16/2013 SYLVIA HERRERA APRNSIE E V77.1 DIABETES SCREENING 06/16/2013 SYLVIA HERRERA APRNSIE E V78.0 ANEMIA SCREENING 06/16/2013 DOWELL DO, BEULAH K V06.1 TDAP DX 06/16/2013 DOWELL DO, BEULAH K V77.1 DIABETES SCREENING 06/16/2013 DOWELL DO, BEULAH K V78.0 ANEMIA SCREENING 06/16/2013 [facility] SHEREE E V06.1 TDAP DX 06/16/2013 [employer], SHEREE E V77.1 DIABETES SCREENING 06/16/2013 [facility] SHEREE E V78.0 ANEMIA SCREENING 06/16/2013 [facility] SHEREE E V06.1 TDAP DX 06/16/2013 [employer], SHEREE E V77.1 DIABETES SCREENING 06/16/2013 [facility] [employer], SHEREE E V78.0 ANEMIA SCREENING 06/16/2013 DOWELL DO, BEULAH K V06.1 TDAP DX 06/16/2013 DOWELL DO, BEULAH K V77.1 DIABETES SCREENING 06/16/2013 DOWELL DO, BEULAH K V78.0 ANEMIA SCREENING 06/16/2013 [employer], SHEREE E V06.1 TDAP DX 06/16/2013 [facility] [employer], SHEREE E V77.1 DIABETES SCREENING 06/16/2013 [facility] [employer], SHEREE E V78.0 ANEMIA SCREENING 06/16/2013 DOWELL DO, BEULAH K V06.1 TDAP DX 06/16/2013 DOWELL DO, BEULAH K V77.1 DIABETES SCREENING 06/16/2013 DOWELL DO, BEULAH K V78.0 ANEMIA SCREENING 08/26/2013 SYLVIA DOWELL DOA K 649.00 TOBACCO USE DISORDER COMPLICATING CHILDBIRTH OR THE PUERPERIUM UNSPECIFIED TO EPISODE OF CARE OR NOT APPLICABLE 08/26/2013 SYLVIA DOWELL DOA K 649.00 TOBACCO USE DISORDER COMPLICATING CHILDBIRTH OR THE PUERPERIUM UNSPECIFIED TO EPISODE OF CARE OR NOT APPLICABLE 08/26/2013 FIFI WILDESMARIBEL 649.00 TOBACCO USE DISORDER COMPLICATING CHILDBIRTH OR THE PUERPERIUM UNSPECIFIED TO EPISODE OF CARE OR NOT APPLICABLE 08/26/2013 BEULAH DOWELL DO K 649.00 TOBACCO USE DISORDER COMPLICATING CHILDBIRTH OR THE PUERPERIUM UNSPECIFIED TO EPISODE OF CARE OR NOT APPLICABLE 08/26/2013 MAGALYS PIMENTEL BEULAH K 649.00 TOBACCO USE DISORDER COMPLICATING CHILDBIRTH OR THE PUERPERIUM UNSPECIFIED TO EPISODE OF CARE OR NOT APPLICABLE 08/26/2013 SYLVIA DOWELL DOA K 649.00 TOBACCO USE DISORDER COMPLICATING CHILDBIRTH OR THE PUERPERIUM UNSPECIFIED TO EPISODE OF CARE OR NOT APPLICABLE 08/26/2013 FIFI DDS, JOSE FRANCISCO Lundberg 649.00 TOBACCO USE DISORDER COMPLICATING CHILDBIRTH OR THE PUERPERIUM UNSPECIFIED TO EPISODE OF CARE OR NOT APPLICABLE 08/26/2013 SHEREE HERRREA APRN 649.00 TOBACCO USE DISORDER COMPLICATING CHILDBIRTH OR THE PUERPERIUM UNSPECIFIED TO EPISODE OF CARE OR NOT APPLICABLE 08/26/2013 BEULAH DOWELL DO 649.00 TOBACCO USE DISORDER COMPLICATING CHILDBIRTH OR THE PUERPERIUM UNSPECIFIED TO EPISODE OF CARE OR NOT APPLICABLE 08/26/2013 SHEREE HERRERA APRN 649.00 TOBACCO USE DISORDER COMPLICATING CHILDBIRTH OR THE PUERPERIUM UNSPECIFIED TO EPISODE OF CARE OR NOT APPLICABLE 08/26/2013 BEULAH DOWELL DO 649.00 TOBACCO USE DISORDER COMPLICATING CHILDBIRTH OR THE PUERPERIUM UNSPECIFIED TO EPISODE OF CARE OR NOT APPLICABLE 08/26/2013 SHEREE HERRERA APRN 649.00 TOBACCO USE DISORDER COMPLICATING CHILDBIRTH OR THE PUERPERIUM UNSPECIFIED TO EPISODE OF CARE OR NOT APPLICABLE 08/26/2013 SHEREE HERRERA APRN 649.00 TOBACCO USE DISORDER COMPLICATING CHILDBIRTH OR THE PUERPERIUM UNSPECIFIED TO EPISODE OF CARE OR NOT APPLICABLE 08/26/2013 BEULAH DOWELL DO 649.00 TOBACCO USE DISORDER COMPLICATING CHILDBIRTH OR THE PUERPERIUM UNSPECIFIED TO EPISODE OF CARE OR NOT APPLICABLE 08/26/2013 SHEREE HERRERA APRN 649.00 TOBACCO USE DISORDER COMPLICATING CHILDBIRTH OR THE PUERPERIUM UNSPECIFIED TO EPISODE OF CARE OR NOT APPLICABLE 08/26/2013 BEULAH DOWELL DO 649.00 TOBACCO USE DISORDER COMPLICATING CHILDBIRTH OR THE PUERPERIUM UNSPECIFIED TO EPISODE OF CARE OR NOT APPLICABLE 09/14/2013 BEULAH DOWELL DO, Ot 648.93 OTH CURR COND-ANTEPARTUM 09/14/2013 BEULAH DOWELL DO Ot 789.00 ABDOMINAL PAIN, UNSPECIFIED SITE 09/26/2013 JULIET IRENE, CURLY Yuan Ot 649.01 TOBACCO USE DISORDER COMP PREG/ CHILDBIRT 09/26/2013 CURLY VILLEDA MD Ot 654.21 PREV DELIVRY W/ OR W/O MENT ANT 09/26/2013 CURLY VILLEDA MD Ot 663.31 CORD ENTANGLE NEC-DELIV 09/26/2013 CURLY VILLEDA MD Ot V27.0 DELIVER-SINGLE LIVEBORN 09/29/2013 MAGALYS PIMENTEL BEULAH K V25.9 UNSPECIFIED CONTRACEPTIVE MANAGEMENT 09/29/2013 MAGALYS PIMENTEL BEULAH K V25.9 UNSPECIFIED CONTRACEPTIVE MANAGEMENT 09/29/2013 JOSE FRANCISCO CALIX DDS V25.9 UNSPECIFIED CONTRACEPTIVE MANAGEMENT 09/29/2013 [facility] [employer], SHEREE E V25.9 UNSPECIFIED CONTRACEPTIVE MANAGEMENT 09/29/2013 DOWELL DO BEULAH K V25.9 UNSPECIFIED CONTRACEPTIVE MANAGEMENT 09/29/2013 [employer], SHEREE E V25.9 UNSPECIFIED CONTRACEPTIVE MANAGEMENT 09/29/2013 DOWELL DO BEULAH K V25.9 UNSPECIFIED CONTRACEPTIVE MANAGEMENT 09/29/2013 [employer], SHEREE E V25.9 UNSPECIFIED CONTRACEPTIVE MANAGEMENT 09/29/2013 [employer], SHEREE E V25.9 UNSPECIFIED CONTRACEPTIVE MANAGEMENT 09/29/2013 DOWELL DO BEULAH K V25.9 UNSPECIFIED CONTRACEPTIVE MANAGEMENT 09/29/2013 [facility] [employer], SHEREE E V25.9 UNSPECIFIED CONTRACEPTIVE MANAGEMENT 09/29/2013 DOWELL DO BEULAH K V25.9 UNSPECIFIED CONTRACEPTIVE MANAGEMENT 10/04/2013 DOWELL DO BEULAH K V58.31 ENCOUNTER FOR CHANGE OR REMOVAL OF SURGICAL WOUND DRESSING 10/04/2013 JOSE FRANCISCO CALIX DDS V58.31 ENCOUNTER FOR CHANGE OR REMOVAL OF SURGICAL WOUND DRESSING 10/04/2013 HELSYLVIA GUZMAN APRNSIE E V58.31 ENCOUNTER FOR CHANGE OR REMOVAL OF SURGICAL WOUND DRESSING 10/04/2013 SYLVIA DOWELL DOA K V58.31 ENCOUNTER FOR CHANGE OR REMOVAL OF SURGICAL WOUND DRESSING 10/04/2013 SYLVIA HERRERA APRNSIE E V58.31 ENCOUNTER FOR CHANGE OR REMOVAL OF SURGICAL WOUND DRESSING 10/04/2013 MAGALYS PIMENTEL BEULAH K V58.31 ENCOUNTER FOR CHANGE OR REMOVAL OF SURGICAL WOUND DRESSING 10/04/2013 SYLVIA HERRERA APRNSIE E V58.31 ENCOUNTER FOR CHANGE OR REMOVAL OF SURGICAL WOUND DRESSING 10/04/2013 [facility] [employer], SHEREE E V58.31 ENCOUNTER FOR CHANGE OR REMOVAL OF SURGICAL WOUND DRESSING 10/04/2013 DOWELL DO, BEULAH K V58.31 ENCOUNTER FOR CHANGE OR REMOVAL OF SURGICAL WOUND DRESSING 10/04/2013 [facility] [employer], SHEREE E V58.31 ENCOUNTER FOR CHANGE OR REMOVAL OF SURGICAL WOUND DRESSING 10/04/2013 DOWELL DO, BEULAH K V58.31 ENCOUNTER FOR CHANGE OR REMOVAL OF SURGICAL WOUND DRESSING 02/03/2014 [facility], SHEREE E 786.2 COUGH 02/03/2014 [facility], SHEREE E 786.59 OTHER CHEST PAIN 02/03/2014 DOWELL DO, BEULAH K 786.2 COUGH 02/03/2014 DOWELL DO, BEULAH K 786.59 OTHER CHEST PAIN 02/03/2014 [facility] [employer], SHEREE E 786.2 COUGH 02/03/2014 [employer], SHEREE E 786.59 OTHER CHEST PAIN 02/03/2014 [employer], SHEREE E 786.2 COUGH 02/03/2014 [employer], SHEREE E 786.59 OTHER CHEST PAIN 02/03/2014 DOWELL DO, BEULAH K 786.2 COUGH 02/03/2014 DOWELL DO, BEULAH K 786.59 OTHER CHEST PAIN 02/03/2014 [facility], SHEREE E 786.2 COUGH 02/03/2014 [employer], SHEREE E 786.59 OTHER CHEST PAIN 02/03/2014 DOWELL DO, BEULAH K 786.2 COUGH 02/03/2014 DOWELL DO, BEULAH K 786.59 OTHER CHEST PAIN 02/28/2014 DOWELL DO, BEULAH K 724.1 PAIN IN THORACIC SPINE 02/28/2014 [facility], SHEREE E 724.1 PAIN IN THORACIC SPINE 02/28/2014 [employer], SHEREE E 724.1 PAIN IN THORACIC SPINE 02/28/2014 DOWELL DO, BEULAH K 724.1 PAIN IN THORACIC SPINE 02/28/2014 [facility], SHEREE E 724.1 PAIN IN THORACIC SPINE 02/28/2014 DOWELL DO, BEULAH K 724.1 PAIN IN THORACIC SPINE 04/25/2014 DOWELL DO, BEULAH K 381.01 ACUTE SEROUS OTITIS MEDIA 04/25/2014 MAGALYS PIMENTEL, BEULAH K 466.0 ACUTE BRONCHITIS 04/25/2014 SHEREE HERRERA APRN 381.01 ACUTE SEROUS OTITIS MEDIA 04/25/2014 SHEREE HERRERA APRN E 466.0 ACUTE BRONCHITIS 04/25/2014 DOWELL DO, BEULAH K 381.01 ACUTE SEROUS OTITIS MEDIA 04/25/2014 MAGALYS PIMENTEL BEULAH K 466.0 ACUTE BRONCHITIS 08/11/2014 MAGALYS PIMENTEL BEULAH K 530.81 ESOPHAGEAL REFLUX 08/11/2014 MAGALYS PIMENTEL, BEULAH K 724.8 OTHER SYMPTOMS REFERABLE TO BACK 05/18/2015 Ot V22.1 05/18/2015 SHEREE HERRERA APRN Ot 646.83 05/18/2015 SHEREE HERRERA APRN Ot 789.00 05/18/2015 SHEREE HERRERA APRN Ot V28.81 05/18/2015 JULIET IRENE, CURLY Yuan Ot 654.23 05/18/2015 JULIET IRENE, CURLY Yuan Ot V72.63 05/18/2015 JULIET IRENE, CURLY Yuan Ot V72.84 05/18/2015 JULIET IERNE, CURLY Yuan Ot V74.8 05/18/2015 BETITO MELISSA Ot F17.210 NICOTINE DEPENDENCE, CIGARETTES, UNCOMPL 05/18/2015 BETITO MELISSA Ot M54.41 LUMBAGO WITH SCIATICA, RIGHT SIDE 06/11/2015 Ot F17.210 NICOTINE DEPENDENCE, CIGARETTES, UNCOMPL 06/11/2015 Ot S40.012A CONTUSION OF LEFT SHOULDER, INITIAL ENCO 06/11/2015 Ot W07.XXXA FALL FROM CHAIR, INITIAL ENCOUNTER 06/11/2015 Ot Y99.8 OTHER EXTERNAL CAUSE STATUS 07/20/2016 Ot V22.1 SUPERVIS OTH NORMAL PREG 07/20/2016 SHEREE HERRERA [employer] Ot 646.83 PREG COMPL NEC-ANTEPART 07/20/2016 SHEREE HERRERA [employer] Ot 789.00 ABDOMINAL PAIN, UNSPECIFIED SITE 07/20/2016 SHEREE HERRERA [employer] Ot V28.81 ENCOUNTER FOR ANATOMIC SURVEY 07/20/2016 CURLY VILLEDA MD Ot 654.23 PREV DELIVERY, ANTEPARTUM COND 07/20/2016 CURLY VILLEDA MD, Ot V72.63 PRE-PROCEDURAL LABORATORY EXAMINATION 07/20/2016 CURLY VILLEDA MD, Ot V72.84 EXAM PRE-OPERATIVE NOS 07/20/2016 UCRLY VILLEDA MD, Ot V74.8 SCREEN-BACTERIAL DIS NEC 07/20/2016 KAREN DO JORI K Ot F17.210 NICOTINE DEPENDENCE, CIGARETTES, UNCOMPL 07/20/2016 KAREN DO, JORI K Ot R21 RASH AND OTHER NONSPECIFIC SKIN ERUPTION 07/26/2016 KAREN DO, JORI K Ot F17.210 NICOTINE DEPENDENCE, CIGARETTES, UNCOMPL 07/26/2016 KAREN DO, JORI K Ot R21 RASH AND OTHER NONSPECIFIC SKIN ERUPTION 07/28/2016 Ot V22.1 SUPERVIS OTH NORMAL PREG 07/28/2016 SHEREE HERRERA E [employer] Ot 646.83 PREG COMPL NEC-ANTEPART 07/28/2016 SHEREE HERRERA [employer] Ot 789.00 ABDOMINAL PAIN, UNSPECIFIED SITE 07/28/2016 SHEREE HERRERA [employer] Ot V28.81 ENCOUNTER FOR ANATOMIC SURVEY 07/28/2016 CURLY VILLEDA MD Ot 654.23 PREV DELIVERY, ANTEPARTUM COND 07/28/2016 CURLY VILLEDA MD, Ot V72.63 PRE-PROCEDURAL LABORATORY EXAMINATION 07/28/2016 CURLY VILLEDA MD, Ot V72.84 EXAM PRE-OPERATIVE NOS 07/28/2016 CURLY VILLEDA MD, Ot V74.8 SCREEN-BACTERIAL DIS NEC 07/30/2016 ALEXI SIMMS APRN Ot S83.92XA SPRAIN OF UNSPECIFIED SITE OF LEFT KNEE , 07/30/2016 ALEXI SIMMS APRN Ot S89.92XA UNSPECIFIED INJURY OF LEFT LOWER LEG, IN 07/30/2016 ALEXI SIMMS APRN Ot W01.0XXA FALL SAME LEV FROM SLIP/TRIP W/O STRIKE 07/30/2016 ALEXI SIMMS APRN Ot Y99.8 OTHER EXTERNAL CAUSE STATUS Procedures Code Description Performed By Performed On 74.1 LOW CERVICAL 06/22/2009 74.1 LOW CERVICAL 08/24/2011 85655 URINE TEST (IN-HOUSE) 02/08/2013 67014 US OB - EARLY <14 WEEKS 02/17/2013 92712 ROUTINE VENIPUNCTURE 04/07/2013 12937 UA OB DIP 2012 91959 TRICHOMONAS (IN-HOUSE) 04/07/2013 94553 CBC 04/07/2013 73072 HIV ANTIBODIES (RML) 04/08/2013 5813563 ANTIBODY SCREEN (RESULT ONLY) 04/08/2013 95646 BLOOD TYPE/Rh FACTOR 04/08/2013 51003 RUBELLA ANTIBODY, IGG 04/08/2013 75699 CULTURE URINE 10/2012 31213 CULTURE UROGENITAL 04/10/2013 13682 PAP SMEAR 2012 74498 GC/CHLAM PROBE (STATE) 04/15/2013 50286 SYPHILLIS-STATE LAB 04/19/2013 93786 HEP B SURFACE ANTIGEN (STATE) 04/19/2013 08021 ANTIBODY SCREEN (order) 04/30/2013 Q0091 PAP SMEAR OBTAIN SMEAR 04/30/2013 24811 US OB - COMPLETE >14 WEEKS 05/13/2013 28365 URINE DRUG SCREEN (IN-HOUSE) 05/13/2013 12678 UA OB DIP 2013 23246 UA OB DIP 2013 Obstetric JulietCurly 08/12/2013 03602 UA OB DIP 2013 47578 UA OB DIP 2013 77391 CULTURE GROUP B STREP VAG 08/26/2013 07289 UA OB DIP 2013 74.1 LOW CERVICAL 09/24/2013 11664 THERAPUTIC INJ SQ/IM 09/29/2013 J1050 DEPO PROVERA 06644 TEST, URINE (IN-HOUSE) 09/29/2013 29017 TEST, URINE (IN-HOUSE) 12/20/2013 07770 THERAPUTIC INJ SQ/IM 12/20/2013 J1050 DEPO PROVERA 41910 XRAY CHEST 2 VIEW 02/03/2014 60849 URINE DRUG SCREEN (IN-HOUSE) 02/28/2014 76598 UA LONG DIP 02/28 04993 URINE DRUG SCREEN (IN-HOUSE) 02/28/2014 URINEDRUG URINE DRUG SCREEN (CON'F) 02/28/2014 09449 THERAPUTIC INJ SQ/IM 03/08/2014 J1050 DEPO PROVERA 08/2013 75616 TEST, URINE (IN-HOUSE) 03/08/2014 J1050 DEPO PROVERA 03/2015 85816 TEST, URINE (IN-HOUSE) 06/15/2014 06094 THERAPUTIC INJ SQ/IM 06/15/2014 Results Encounters ACCT No. Visit Date/Time Discharge Status Pt. Type Provider Facility Loc./Unit Complaint [id number] 08/11/2014 13:31:00 08/11/2014 23: 59:59 CLS Outpatient BEULAH DOWELL DO [id number] 06/15/2014 12:08:00 06/15/2014 23: 59:59 CLS Outpatient SHEREE HERRERA APRN [id number] 04/25/2014 16:08:00 04/25/2014 23: 59:59 CLS Outpatient BEULAH DOWELL DO [id number] 03/08/2014 08:56:00 03/08/2014 23: 59:59 CLS Outpatient SHEREE HERRERA APRN [id number] 02/28/2014 14:25:00 02/28/2014 23: 59:59 CLS Outpatient SHEREE HERRERA APRN [id number] 02/28/2014 14:25:00 02/28/2014 23: 59:59 CLS Outpatient BEULAH DOWELL DO [id number] 02/03/2014 08:32:00 02/03/2014 23: 59:59 CLS Outpatient SHEREE HERRERA APRN [id number] 12/20/2013 15:30:00 12/20/2013 23: 59:59 CLS Outpatient HSEREE HERRERA APRN [id number] 12/20/2013 15:30:00 12/20/2013 23: 59:59 CLS Outpatient BEULAH DOWELL DO [id number] 10/19/2013 13:34:00 10/19/2013 23: 59:59 CLS Outpatient JOSE FRANCISCO CALIX DDS [id number] 10/04/2013 16:01:00 10/04/2013 23: 59:59 CLS Outpatient DOWELL DOBEULAH [id number] 09/29/2013 14:42:00 09/29/2013 23: 59:59 CLS Outpatient DOWELL DOBEULAH [id number] 09/17/2013 13:51:00 09/17/2013 23: 59:59 CLS Outpatient DOWELL DO, BEULAH Lopez [id number] 09/10/2013 09:42:00 09/10/2013 23: 59:59 CLS Outpatient WHITE DDSMARIBEL [id number] 09/09/2013 10:55:00 09/09/2013 23: 59:59 CLS Outpatient DOWELL DO, BEULAH Lopez [id number] 08/26/2013 13:18:00 08/26/2013 23: 59:59 CLS Outpatient DOWELL DO, BEULAH Lopez [id number] 08/12/2013 10:03:00 08/12/2013 23: 59:59 CLS Outpatient HYACINTHLSHEREE SPAIN APRN [id number] 08/12/2013 10:03:00 08/12/2013 23: 59:59 CLS Outpatient DOWELL DO, BEULAH Lopez [id number] 07/14/2013 13:19:00 07/14/2013 23: 59:59 CLS Outpatient HELLWIG [employer] [employer] FARMSHEREE [id number] 07/14/2013 13:19:00 07/14/2013 23: 59:59 CLS Outpatient DOWELL DOBEULAH [id number] 06/16/2013 13:41:00 06/16/2013 23: 59:59 CLS Outpatient DOWELL DOBEULAH [id number] 06/16/2013 13:41:00 06/16/2013 23: 59:59 CLS Outpatient DOWELL DO, BEULAH Lopez [id number] 05/13/2013 14:10:00 05/13/2013 23: 59:59 CLS Outpatient DOWELL DO, BEULAH Lopez [id number] 04/07/2013 14:17:00 04/07/2013 23: 59:59 CLS Outpatient DOWELL DO, BEULAH Lopez [id number] 04/07/2013 14:17:00 04/07/2013 23: 59:59 CLS Outpatient DOWELL DO, BEULAH Lopez [id number] 02/17/2013 10:23:00 02/17/2013 23: 59:59 CLS Outpatient DOWELL DO, BEULAH Lopez [id number] 02/08/2013 17:22:00 02/08/2013 23: 59:59 CLS Outpatient [place], [place] K [id number] 09/13/2011 13:54:00 09/13/2011 23: 59:59 CLS Outpatient [id number] 12/29/2012 11:22:00 Document Registration [id number] 09/24/2012 13:14:00 Document Registration [id number] 09/13/2011 13:54:00 Document Registration
--- OUTSIDE RECORDS SUMMARY | 2016-08-13 13:47 | XMS REPORT ---
Author Author SHEREE HERRERA [facility] e[employer] Address Unknown Phone Unavailable Care Team Providers Care Boxer Operator Name Role Phone SHEREE HERRERA CP Unavailable [...]
--- OUTSIDE RECORDS SUMMARY | 2016-08-13 13:47 | XMS REPORT | Continuity of Care Document ---
Author Author [facility] Organization [facility] Address Unknown Phone Unavailable Care Team Providers Care Municipal Clerk Name Role Phone NO, LOCAL PHYSICIAN PP Unavailable Insurance Providers Payer Name Policy Number Subscriber Name Relationship [facility] [id number] Jamel Soria Self / Same As Patient Advance Directives Directive Response Recorded Date Advance Directives N 09/20/12 11:25pm Health Care Power of Cna Gna N 09/20/12 11:25pm Organ Donor N 09/20/12 11:25pm Problems No Known Problems or Medical conditions. Family History History Response Recorded Date/Time Hx Family Cancer N 08/24/11 10:16am Social History History Response Recorded Date/Time Alcohol Use Denies Use 09/20/12 11:25pm Recreational Drug Use N 09/20/12 11:25pm Allergies, Adverse Reactions, Alerts Allergen Type Severity Reaction Last Updated Penicillins Allergy Unknown 06/22/09 Medications Medication Dose Units Route Sig Qty Days Nitrofurantoin Macrocrystals (Macrobid) 1 Each PO BID 20 Ibuprofen (Motrin) 600 Mg PO Q6H PRN Acetaminophen/Hydrocodone Bitart (Lortab 5 Mg) 1 - 2 Ea PO Q 4 - 6 HR PRN Vits W-Ca,Fe,Fa(<1MG) () 1 Each PO DAILY Immunizations Name Given Type Date of Influenza Vaccine 03/05/11 H Response Recorded Date/Time Status not known Unknown Results Test Date Result Interp. Ref. Range Acetaminophen Screen August 24, 2011 9:00am NEGATIVE - Alanine Aminotransferase (ALT/SGPT) August 25, 2011 6:42am 22 U/L L 30-65 Albumin August 25, 2011 6:42am 2.0 G/DL L 3.4-5.0 Alkaline Phosphatase August 25, 2011 6:42am 183 U/L H 50-136 Aspartate Amino Transf (AST/SGOT) August 25, 2011 6:42am 13 U/L L 15-37 BUN/Creatinine Ratio August 25, 2011 6:42am 3 - Basophils # (Auto) August 25, 2011 6:42am 0.0 10^3/uL N 0.0-0.1 Basophils (%) (Auto) August 25, 2011 6:42am 0 % N 0-10 Blood Urea Nitrogen August 25, 2011 6:42am 2 MG/DL L 7-18 Calcium Level August 25, 2011 6:42am 8.4 MG/DL L 8.5-10.1 Carbon Dioxide Level August 25, 2011 6:42am 27 MMOL/L N 21-32 Chloride Level August 25, 2011 6:42am 103 MMOL/L N 101-110 Creatinine August 25, 2011 6:42am 0.8 MG/ DL N 0.6-1.3 Eosinophils # (Auto) August 25, 2011 6:42am 0.1 10^3/uL N 0.0-0.3 Eosinophils (%) (Auto) August 25, 2011 6:42am 0 % N 0-10 Glucose Level August 25, 2011 6:42am 70 MG/DL L 74-106 Hematocrit August 25, 2011 6:42am 32 % L 35-52 Hemoglobin August 25, 2011 6:42am 11.2 G/ DL L 11.5-16.0 Lymphocytes # (Auto) August 25, 2011 6:42am 1.8 X 10^3 N 1.0-4.0 Lymphocytes (%) (Auto) August 25, 2011 6:42am 11 % L 12-44 Magnesium Level August 25, 2011 6:42am 1.6 MG/DL L 1.8-2.4 Mean Corpuscular Hemoglobin August 25, 2011 6:42am 31 PG N 25-34 Mean Corpuscular Hemoglobin Concent August 25, 2011 6:42am 35 G/DL N 32-36 Mean Corpuscular Volume August 25, 2011 6:42am 90 FL N 80-99 Mean Platelet Volume August 25, 2011 6:42am 9.4 FL N 7.4-10.4 Monocytes # (Auto) August 25, 2011 6:42am 0.8 X 10^3 N 0.0-1.0 Monocytes (%) (Auto) August 25, 2011 6:42am 5 % N 0-12 Neutrophils # (Auto) August 25, 2011 6:42am 14.7 X 10^3 H 1.8-7.8 Neutrophils (%) (Auto) August 25, 2011 6:42am 84 % H 42-75 Platelet Count August 25, 2011 6:42am 208 10^3/uL N 130-400 Potassium Level August 25, 2011 6:42am 3.7 MMOL/L N 3.6-5.0 Red Blood Count August 25, 2011 6:42am 3.59 10^6/uL L 4.35-5.85 Red Cell Distribution Width August 25, 2011 6:42am 13.6 % N 10.0-14.5 Sodium Level August 25, 2011 6:42am 135 MMOL/L N 135-145 Total Bilirubin August 25, 2011 6:42am 0.4 MG/DL N 0.0-1.0 Total Protein August 25, 2011 6:42am 5.5 G/DL L 6.4-8.2 Ur Tricyclic Antidepressants Screen September 21, 2012 12:33am NEGATIVE - Urine Amphetamines Screen September 21, 2012 12:33am NEGATIVE - Urine Bacteria September 21, 2012 12:33am FEW /HPF H - Urine Barbiturates Screen September 21, 2012 12:33am NEGATIVE - Urine Benzodiazepines Screen September 21, 2012 12:33am NEGATIVE - Urine Bilirubin September 21, 2012 12:33am NEGATIVE - Urine Casts September 21, 2012 12:33am NONE / LPF - Urine Clarity September 21, 2012 12:33am CLEAR - Urine Cocaine Screen September 21, 2012 12:33am NEGATIVE - Urine Color September 21, 2012 12:33am YELLOW - Urine Crystals September 21, 2012 12:33am NONE /LPF - Urine Culture Indicated September 21, 2012 12:33am YES - Urine Glucose (UA) September 21, 2012 12:33am NEGATIVE - Urine Ketones September 21, 2012 12:33am NEGATIVE - Urine Leucine Crystals September 21, 2012 12:33am /LPF - Urine Leukocyte Esterase September 21, 2012 12:33am 1+ H - Urine Methamphetamines Screen September 21, 2012 12:33am NEGATIVE - Urine Mucus September 21, 2012 12:33am NEGATIVE /LPF - Urine Nitrate February 08, 2007 4:40pm Negative - Urine Nitrite September 21, 2012 12:33am NEGATIVE - Urine Opiates Screen September 21, 2012 12:33am NEGATIVE - Urine Phencyclidine Screen September 21, 2012 12:33am NEGATIVE - Urine Propoxyphene Screen September 21, 2012 12:33am NEGATIVE - Urine Protein September 21, 2012 12:33am NEGATIVE - Urine RBC September 21, 2012 12:33am 0-2 /HPF - Urine Specific [place] September 21, 2012 12:33am 1.015 L - Urine Squamous Epithelial Cells September 21, 2012 12:33am 25-50 /HPF H - Urine Trichomonas August 19, 2011 3:45pm MODERATE H - Urine Urobilinogen September 21, 2012 12:33am NORMAL MG/DL - Urine WBC September 21, 2012 12:33am 10-25 / HPF H - Urine pH September 21, 2012 12:33am 5 - White Blood Count August 25, 2011 6:42am 17.4 10^3/uL H 4.3-11.0 Urine Oxycodone Screen September 21, 2012 12:33am NEGATIVE - Urine Methadone Screen September 21, 2012 12:33am NEGATIVE - Urine Cannabinoids Screen September 21, 2012 12:33am NEGATIVE - Urine Buprenorphine September 21, 2012 12:33am NEGATIVE - Urine RBC (Auto) September 21, 2012 12:33am 4+ H - Procedures Procedure Code Date LOW CERVICAL 74.1 02/09/07 LOW CERVICAL 74.1 06/22/09 LOW CERVICAL 74.1 08/24/11 Urine Culture 08/19/11 Encounters Encounter Location Date/Time Departed Emergency Room [facility] 11:20pm Discharged Inpatient [facility] 8:03am
--- OUTSIDE RECORDS SUMMARY | 2016-08-13 13:48 | XMS REPORT | Continuity of Care Document ---
Author Author [facility] Organization [facility] Address Unknown Phone Unavailable Care Team Providers Care Look Out Tower Fire Watcher Name Role Phone NO, LOCAL PHYSICIAN PP Unavailable Insurance Providers Payer Name Policy Number Subscriber Name Relationship [facility] [id number] Jamel Soria Self / Same As Patient Advance Directives Directive Response Recorded Date Advance Directives N 12/11/12 1:08pm Health Care Power of Cloth Sponger N 12/11/12 1:08pm Organ Donor N 12/11/12 1:08pm Problems No Known Problems or Medical conditions. Family History History Response Recorded Date/Time Hx Family Cancer N 08/24/11 10:16am Hx Family Cardiac Disorders N 08/24/11 10 :16am Social History History Response Recorded Date/Time Alcohol Use Occasionally Uses 12/11/12 1: 08pm Recreational Drug Use N 12/11/12 1:08pm Recent Foreign Travel N 12/11/12 1:08pm Recent Infectious Disease Exposure N 01/15 1:08pm Allergies, Adverse Reactions, Alerts Allergen Type Severity Reaction Last Updated Penicillins Allergy Unknown 06/22/09 latex Allergy 10/12/12 Medications Medication Dose Units Route Sig Qty Days Hydroxyzine HCl (Hydroxyzine 50 Mg Tablet) 1 Each PO TID PRN Tramadol HCl (Ultram) 50 Mg PO Q4H 14 Trimethoprim/Sulfamethoxazole (Bactrim Ds) 1 Ea PO BID 7 Nitrofurantoin Macrocrystals (Macrobid) 1 Each PO BID 20 Immunizations Name Given Type Date of Influenza [...] 2012 12:33am 0-2 /HPF - Urine Specific [place] September 21, 2012 12:33am 1.015 L - [...] 06/22/09 LOW CERVICAL 74.1 08/24/11 Urine Culture 09/21/12 Encounters Encounter Location Date/Time Departed Emergency Room [facility] 01/15 1:05pm Discharged Inpatient [facility] 8:03am
== END 2016-07-28 19:50 | disposition home or self-care (01) ==
LOC: EDUNIT# 19:12 → ER 19:14
DX: S83.92XA Sprain of unspecified site of left knee, initial encounter (principal); W01.0XXA Fall on same level from slipping, tripping and stumbling without subsequent striking against object, initial encounter; Y99.8 Other external cause status
CPT/HCPCS: 73562; 96372; 99283

== ENCOUNTER → 2020-05-08 | Outpatient (CLI) | payer OTHER ==
[~2020-05-08] MED LIST changes: -METO-270 PO; +MTP25TSR PO; +NAPR-1071 PO; -NAPR500T PO
--- NOTE | 2020-05-08 10:24 | Diagnostic Imaging Report ---
HISTORY: Pain and limited mobility in the cervical spine. COMPARISON: None TECHNIQUE: Four views of the cervical spine. FINDINGS: Alignment of the cervical spine appears normal with no significant spondylolisthesis. The spine is visible from the craniocervical junction down to the C6-C7 level in the lateral view. There are mild degenerative changes at C6-C7. The spinous processes appear fused at C5-C6 posteriorly. The C1-C2 alignment appears normal. IMPRESSION: 1. Mild degenerative changes and postsurgical changes in the cervical spine with no acute osseous abnormality seen. Dictated by: Dictated on workstation # [id number]
--- NOTE | 2020-05-08 10:52 | Diagnostic Imaging Report ---
INDICATION: Left knee pain and decreased mobility. TECHNIQUE/COMPARISON: AP and lateral views of the left knee were obtained and compared to 07/28/2016. FINDINGS: Screws are in place in the proximal tibia and distal femur in a configuration of ACL repair. There is no acute fracture or acute bony abnormality. There is no significant joint space narrowing or joint effusion. IMPRESSION: Evidence of previous ACL repair. No acute abnormality. Dictated by: Dictated on workstation # [id number]
== END ==
LOC: RAD 09:36
PROVIDERS: ATTEND Anesthesiology Pain Medicine
DX: Z02.71 Encounter for disability determination (principal); M47.812 Spondylosis without myelopathy or radiculopathy, cervical region; M25.562 Pain in left knee
CPT/HCPCS: 72040; 73560